=== PATIENT | male | born 1945 ===

== ENCOUNTER 2017-06-18 11:31 | Day surgery (SDC) | payer SELFPAY ==
[2017-06-18] VITALS (7 sets, daily range): BP systolic 115–144; BP diastolic 62–88
[2017-06-18] MEDS ORDERED: HEParin (CATH LAB) 2,000 ML IV ONE (11:35)
[2017-06-18] MEDS ORDERED: NS IV 1000 ML 1,000 ML ONE (11:35)
--- NOTE | 2017-06-18 12:07 | Cardiac Procedure Note-CS/ASA ---
Pre-Procedure Note Pre-Op Procedure Note H&P Reviewed The H&P was reviewed, patient examined and no changes noted. Date H&P Reviewed: Jun 18, 2017 Time H&P Reviewed: 12:06 Conscious Sedation Pre-Proced Time Reviewed: 12:06 ASA Class: 3 Airway Mallampati Classification: ([place] appropriate class) I. II. III, IV Lungs Heart ASA score ASA 1: a normal healthy patient ASA 2: a patient with a mild systemic disease (mid diabetes, controlled hypertension, obesity ASA 3: a patient with a severe systemic disease that limits activity (angina , COPD, prior Myocardial infarction) ASA 4: a patient with an incapacitating disease that is a constant threat to life (CHF, renal failure) ASA 5: a moribund patient not expected to survive 24 hrs. (ruptured aneurysm) ASA 6: a declared brain patient whose organs are being harvested. For emergent operations, add the letter E after the classification Grade 2 Sedation Plan: Analgesia, Amnesia, Plan communicated to team members, Discussed options with patient/fam, Discussed risks with patient/fam Note The patient is an appropriate candidate to undergo the planned procedure, sedation, and anesthesia. The patient immediately re-assessed prior to indication. GRETCHEN PRADO MD FACP FAC CCDS Jun 18, 2017 12:07
[2017-06-18] MEDS ORDERED: fentaNYL INJECTION 100 MCG/2 ML AMP ONE (12:10)
[2017-06-18] MEDS ORDERED: MIDAZOLAM 5 MG/5 ML (VERSED) VIAL ONE (12:10)
[2017-06-18] MEDS ORDERED: diphenhydrAMINE 50 MG/ML INJ (BENADRYL) ONE (12:10)
--- NOTE | 2017-06-18 12:13 | Cardiology History & Physical ---
HPI-Cardiology Cardiology H&P Date of Admission 06/18/17 Primary Care Physician Isaiah Velazquez MD, MA [facility] Attending Physician Isaiah Velazquez MD, MA [facility] Consulting Physician [facility] CC: Chest discomfort HPI: 71 yo gentleman with exertional chest discomfort and some shortness of breath. Chest discomfort lower mid sternal and epigastric, non-radiating, lasting only a minute or two and relieved with rest, has been present intermittently for several months, has become somewhat more frequent with lesser exertion. No palp or syncope or leg swelling Review of Systems-Cardiology Review of Systems Constitutional: No malaise, No weight loss, No weight gain Eyes: No vision change Ears/Nose/Throat: No ear discharge, No recent hearing loss Respiratory: As described under HPI Cardiovascular: As described under HPI Gastrointestinal: No constipation, No diarrhea, No nausea, No vomiting Genitourinary: No dysuria, No hematuria Musculoskeletal: No back pain, No joint pain Skin: No rash, No ulcerations Psychiatric/Neurological: No seizure, No focal weakness, No syncope Hematologic: No bleeding abnormalities [id number] Hx Patient Social History Smoking Status: Never a Smoker Recent Foreign Travel: Yes (A few months ago, traveled form [place] before that ) Recent Infectious Disease Expo: No Immunizations Up To Date Date of Influenza Vaccine: Jun 02, 2017 Past Medical History PMH As described under Assessment. Family Medical History Family Medical History: No family h/o or early CAD or SCD Allergies and Home Medications Allergies Coded Allergies: No Known Drug Allergies (Unverified , 06/18/17) Home Medications Aspirin 81 Mg Tablet.dr, 81 MG PO DAILY, (Reported) Atorvastatin Calcium 40 Mg Tablet, 40 MG PO DAILY, (Reported) Cetirizine HCl 10 Mg Tablet, 10 MG PO DAILY, (Reported) Clopidogrel Bisulfate 75 Mg Tablet, 75 MG PO DAILY, (Reported) Metoprolol Succinate 50 Mg Tab.er.24h, 50 MG PO DAILY, (Reported) Montelukast Sodium 10 Mg Tablet, 10 MG PO DAILY, (Reported) [Perindopril 5MG] , 5 MG PO DAILY, (Reported) Physical Exam-Cardiology Physical Exam Vital Signs/I&O Vital Sign - Last 12Hours 06/18/17 12:00 Temp 97.8 Pulse 66 Resp 18 B/P (MAP) 138/85 Pulse Ox 98 O2 Delivery Room Air Capillary Refill : Constitutional: AAO x 3, well-developed, well-nourished HEENT: PERRL, EOMI, hearing is well preserved, oral hygience is good Neck: No carotid bruit, carotid pulses are 2 + bilaterally Respiratory: No accessory muscle use, lungs clear to percussion, lungs clear to auscultation Cardiovascular: regular rate-rhythm, S1 and S2 Gastrointestinal: No tender, soft, No guarding, No rebound, audible bowel sounds Extremities: No swelling, No clubbing, No cyanosis Neurologic/Psychiatric: grossly intact, power is 5/5 both on sides Data Review Labs Laboratory Tests 06/18/17 11:50: White Blood Count 7.2, Red Blood Count 4.68, Hemoglobin 13.6, Hematocrit 41, Mean Corpuscular Volume 87, Mean Corpuscular Hemoglobin 29, Mean Corpuscular Hemoglobin Concent 33, Red Cell Distribution Width 12.9, Platelet Count 218, Mean Platelet Volume 10.1, Prothrombin Time 13.6, INR Comment 1.0, Activated Partial Thromboplast Time 26, Sodium Level 138, Potassium Level 4.2, Chloride Level 101, Carbon Dioxide Level 28, Anion Gap 9, Blood Urea Nitrogen 15, Creatinine 1.18, Estimat Glomerular Filtration Rate > 60, BUN/Creatinine Ratio 13, Glucose Level 131H, Calcium Level 9.7, Total Bilirubin 0.7, Aspartate Amino Transf (AST/SGOT) 23, Alanine Aminotransferase (ALT/SGPT) 24, Alkaline Phosphatase 61, Total Protein 8.1, Albumin 4.5, Triglycerides Level 118, Cholesterol Level 112, LDL Cholesterol Direct 53, VLDL Cholesterol 24, HDL Cholesterol 33L Laboratory Tests 06/18/17 11:50 A/P-Cardiology Assessment/Admission Diagnosis Exertional angina CAD with h/o PCI to RI and OM1 several years ago that was later followed by CABG consisting of BEE to LAD and SVG to RI and OM1 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 Discussed pros and cons with Mr Mcmahonkathy and with ISAIAH Kong MD FACP FAC CCDS Jun 18, 2017 12:13
[2017-06-18] MEDS ORDERED: NS IV 1000 ML 1,000 ML IV SCH ×2 (12:15→13:45)
[2017-06-18 12:18] LABS: MEAN PLATELET VOLUME 10.1 FL (7.4-10.4); RED BLOOD COUNT 4.68 10^6/uL (4.35-5.85); RED CELL DISTRIBUTION WIDTH 12.9 % (10.0-14.5); WHITE BLOOD COUNT 7.2 10^3/uL (4.3-11.0)
[2017-06-18 12:22] LABS: PROTHROMBIN TIME PATIENT 13.6 SEC (12.2-14.7)
[2017-06-18 12:30] LABS: ALANINE AMINOTRANSFERASE 24 U/L (0-55); ALBUMIN 4.5 GM/DL (3.2-4.5); ANION GAP 9 MMOL/L (5-14); ASPARTATE AMINO TRANSFERASE 23 U/L (5-34); BILIRUBIN,TOTAL 0.7 MG/DL (0.1-1.0); BLOOD UREA NITROGEN 15 MG/DL (7-18); BUN/CREATININE RATIO 13; CALCIUM 9.7 MG/DL (8.5-10.1); CARBON DIOXIDE 28 MMOL/L (21-32); CHLORIDE 101 MMOL/L (98-107); CHOLESTEROL 112 MG/DL (< 200); CREATININE SERUM 1.18 MG/DL (0.60-1.30); DIRECT LDL 53 MG/DL (1-129); GFR ESTIMATED > 60; GLUCOSE 131 MG/DL (70-105); POTASSIUM 4.2 MMOL/L (3.6-5.0); SODIUM 138 MMOL/L (135-145); TOTAL PROTEIN 8.1 GM/DL (6.4-8.2); TRIGLYCERIDES 118 MG/DL (<150); VLDL CHOLESTEROL 24 MG/DL (5-40)
[2017-06-18] MEDS ORDERED: CLOP75TA69 PO (12:32)
[2017-06-18] MEDS ORDERED: CETI10TA20 PO (12:32)
[2017-06-18] MEDS ORDERED: PERINDOPRIL PO (12:32)
[2017-06-18] MEDS ORDERED: MONT10TA24 PO (12:32)
[2017-06-18] MEDS ORDERED: METO-272 PO (12:32)
[2017-06-18] MEDS ORDERED: ASPI-983 PO (12:32)
[2017-06-18] MEDS ORDERED: ATOR40TA70 PO (12:32)
[2017-06-18] MEDS ORDERED: ADENOSINE 3 MG/1 ML (ADENOSCAN) 30ML VIAL IV ONE (12:59)
[2017-06-18] MEDS ORDERED: NITROGLYCERIN DRIP 25 MG/D5W 0 ML IV ONE (13:00)
[2017-06-18] MEDS ORDERED: HEParin 1000 UNIT/ML (10ML VIAL) FOR BOLUS ONE (13:00)
[2017-06-18] MEDS ORDERED: ATROPINE INJECTION 1 MG/10 ML SYR (ABBOTT) ONE (13:12)
[2017-06-18] MEDS ORDERED: PATIENT MAY USE OWN MEDS, ALL PO SCH (13:45)
--- NOTE | 2017-06-18 13:48 | Discharge Inst-Post CATH ---
Discharge Inst-CATH Post Cardiac Cath D/C Inst CARDIAC CATH DISCHARGE INSTRUCTIONS *Hold Metformin for 48 hours post heart cath. ACTIVITY * Go Home directly and rest. * Limit activity of the leg (or wrist if it was used) for 7 days including aerobics, swimming, jogging, bicycling, etc. * Restrict stair-climbing for 7 days if possible, if not, climb up with your non -cath leg, then bring together on the same step. * Avoid lifting, pushing, pulling or excessive movement of the affected extremity for 7 days. * Customary sexual activity may be resumed after 2 days-use caution not to use a position that strains or causes pain to the affected extremity. * No driving for 24 hours. * NO SMOKING. * Avoid straining for bowel movements for 7 days. * Gentle walking on level ground is allowed. * Returning to work will depend on the type of procedure and the results. Your doctor will discuss this with you. CALL YOUR DOCTOR FOR ANY OF THE FOLLOWING: *If bleeding from the puncture site occurs- Apply gentle pressure to site with clean cloth and call your doctor or EMS. * If a knot or lump forms under the skin, increases in size, or causes pain. * If bruising appears to be worsening or moving further down your leg instead of disappearing. * Temperature above 101 F. CARE OF YOUR GROIN INCISION; * Bruising or purple discoloration of the skin near the puncture site is common. * You may shower only, no bathtub bathing for 5 days. Be careful to avoid slipping as your leg may feel stiff. * If a closure device was used on your femoral artery, please see the attached guide regarding care of the device and your leg. * REMOVE the dressing from your groin the next day after your procedure in the shower. CARE OF YOUR WRIST INCISION; * Bruising or purple discoloration of the skin near the puncture site is common. * You may shower. * DO NOT submerge wrist. * Remove dressing in 24 hours. GRETCHEN PRADO MD FACP [facility] CCDS Jun 18, 2017 13:48
--- NOTE | 2017-06-19 08:55 | CARDIAC CATHETERIZATION ---
DATE OF SERVICE: 06/18/2017 71-year-old gentleman who is known to have coronary artery disease and who has had percutaneous interventions several years ago, which were then followed by coronary artery bypass surgery which has, reportedly, consistent of the left internal mammary artery graft to left anterior descending artery and saphenous vein graft to the ramus intermedius into the first obtuse marginal. Right coronary artery is reported to have shown mild disease at the time of coronary artery bypass surgery and was not bypassed. Lately, he has been having symptoms of exertional angina and myocardial perfusion imaging has indicated some inferolateral ischemia. Cardiac catheterization was carried out today after having obtained informed consent. PROCEDURE: He was brought to the cardiac catheterization laboratory in a fasting state. Right groin was prepared and draped in the usual sterile fashion. Lidocaine 1% was used for local anesthesia. Modified Seldinger technique was used to advance a 5-Ethiopian sheath in the right femoral artery. A 5-Ethiopian JL3.5 catheter was used for left coronary angiography. A 5-Ethiopian JR4 catheter was used for angiography of the right coronary artery and of the aortocoronary saphenous vein grafts. A 5-Ethiopian ALFONZO catheter was used for angiography of the left internal mammary artery graft to left anterior descending artery. We used a 5-Ethiopian pigtail catheter to carry out left heart catheterization, left ventricular angiography. FRACTIONAL FLOW RESERVE MEASUREMENT IN THE RIGHT CORONARY ARTERY: Following completion of the diagnostic procedure, we carried out fractional flow reserve measurement in the right coronary artery where there appeared to be approximately 50% stenosis in the proximal right coronary artery with some haziness. We exchanged the sheath over a wire for a 6 Ethiopian sheath. We gave 6000 units of intravenous heparin. We used the 6-Ethiopian JR4 guide catheter to engage the right coronary artery and advanced the Aeris wire across the lesion, which was placed in the distal vessel. We infused adenosine at 140 mcg per kilogram per minute for 2 minutes and 30 seconds. Fractional flow reserve was 0.91, indicating hemodynamic non-significance of the proximal right coronary artery lesion. The wire was removed. We took another angiographic view of right coronary artery and then removed the guide catheter, as well. Angiography of the right femoral artery was carried out through the sheath and Mynx was used to achieve hemostasis. He tolerated the procedure well. HEMODYNAMICS: Left ventricular end-diastolic pressure following coronary angiography was 5 mmHg. There was no significant pressure gradient on pullback across the aortic valve. Ascending aortic pressure was 119/65 with a mean of 87 mmHg. LEFT VENTRICULAR ANGIOGRAPHY: Left ventricular angiography was carried out in the right anterior oblique projection. Global left ventricular systolic function is normal in this view. Left ventricular ejection fraction is approximately 60% and there does not appear to be significant mitral regurgitation in this view. CORONARY ANGIOGRAPHY: Coronary calcification is seen. Left main coronary artery has approximately 30% ostial stenosis and approximately 40% distal stenosis at its bifurcation. The left anterior descending artery immediately bifurcates after origin. The ostial portion of the left anterior descending artery has approximately 70% stenosis and the higher first diagonal branch has approximately 80% ostial stenosis. The left circumflex artery has a long stent that extends from the proximal left circumflex artery into the first obtuse marginal branch, but this artery is completely occluded in its proximal portion within the stented area. The right coronary artery is dominant. It has heavy calcification and diffuse moderate disease. There appeared to be approximately 50% stenosis in the proximal right coronary artery with some haziness and fractional flow reserve across this lesion is 0.91, indicating hemodynamic insignificance of this lesion. SAPHENOUS VEIN GRAFT ANGIOGRAPHY: The more cephalic saphenous vein graft is to an obtuse marginal branch. This is widely patent and does not exhibit any significant stenosis. The flow throughout the vessel and into the obtuse marginal is normal. The more caudal saphenous vein graft is to the high diagonal of the left anterior descending. This is widely patent and does not exhibit significant disease and exhibits normal flow and in the diagonal vessel. LEFT INTERNAL MAMMARY ARTERY ANGIOGRAPHY: Left internal mammary artery graft to distal left anterior descending artery is widely patent and does not exhibit any significant disease. There is normal flow and runoff in this vessel and the left anterior descending artery antegrade to the insertion of this graft. CONCLUSIONS: 1. Coronary artery disease, multivessel, primarily consisting of 70% to 80% stenoses of the proximal left anterior descending and a high diagonal branch of the left anterior descending artery. The left anterior descending artery has a widely patent left internal mammary artery graft and the first diagonal branch of the left anterior descending artery has a widely patent aortocoronary graft. 2. The left circumflex artery is occluded in its proximal portion. This is within a very long stented segment that extends from the left circumflex to the first obtuse marginal. This first obtuse marginal has an intact aortocoronary graft to its distal portion. 3. The right coronary artery is dominant and has diffuse moderate disease and approximately 50% proximal stenosis across which fractional flow reserve was 0.91, indicating hemodynamic non-significance. 4. Normal left ventricular end-diastolic pressure. 5. Normal global left ventricular systolic function with ejection fraction of approximately 60%. 6. No significant mitral regurgitation is seen on the study. DISCUSSION AND RECOMMENDATIONS: Based on the results of the study, it appears appropriate to continue a conservative approach. His current regimen consisting of beta blockers, TEA inhibitors, and dual antiplatelet therapy, and statins. Job ID: [id number] DocumentID: [id number] Dictated Date: 06/18/2017 14:08:18 Foreign Law Consultant Date: 06/18/2017 23:29:35 Dictated By: GRETCHEN PRADO MD, MA, FACP, FACC, MTDD
== END 2017-06-18 16:45 | disposition home or self-care (01) ==
LOC: CATH 11:31 → 4TH 13:45 → CATH 16:45
PROVIDERS: ATTEND Internal Medicine Cardiovascular Disease
DX: R07.89 Other chest pain (principal); I25.10 Atherosclerotic heart disease of native coronary artery without angina pectoris; I25.84 Coronary atherosclerosis due to calcified coronary lesion; I25.82 Chronic total occlusion of coronary artery; R06.02 Shortness of breath; R73.09 Other abnormal glucose; Z95.1 Presence of aortocoronary bypass graft; Z79.899 Other long term (current) drug therapy
CPT/HCPCS: 36415; 80053; 80061; 85027; 85610; 85730; 87081; 93005; 93459; 93571